=== PATIENT | male | born 1965 | race Caucasian/White ===

== ENCOUNTER 2018-05-30 22:56 | Emergency (ER) | payer SELFPAY ==
[~2018-05-30] VITALS: Ht 160 cm; Wt 104.0 kg
[2018-05-31] MEDS ORDERED: ONDANSETRON HCL 4MG/2ML INJ IV ONE (00:45)
[2018-05-31] MEDS ORDERED: MORPHINE SULFATE 4 MG/ML CPJ (NOT FOR IM USE) IV ONE (00:45)
[2018-05-31] MEDS ORDERED: SODIUM CHLORIDE 0.9% 1,000 ML IV ONE (00:45)
[2018-05-31 01:04] LABS: BASOPHILS % 0.8 % (0.0-2.0); EOSINOPHILS % 1.8 % (0.0-5.0); HEMATOCRIT. 47.8 % (42.0-52.0); HEMOGLOBIN. 15.9 g/dL (14.0-18.0); LYMPHOCYTES % 13.7 % (20.0-50.0); MEAN CORPUSCULAR HEMOGLOBIN 31.4 pg (28.0-32.0); MONOCYTES % 4.4 % (2.0-8.0); NEUTROPHILS % 79.3 % (40.0-76.0); PLATELET 263 x1000/uL (130-400); RED BLOOD CELL COUNT 5.08 mill/uL (4.7-6.1); RED CELL DISTRIBUTION WIDTH 13.4 % (11.6-14.6)
[2018-05-31 01:07] LABS: CHLORIDE 105 mEq/L (98-107)
[2018-05-31 01:15] LABS: CLARITY URINE CLEAR (CLEAR); COLOR URINE YELLOW (YELLOW); KETONES URINE NEGATIVE (NEGATIVE); LEUKOCYTE ESTERASE URINE NEGATIVE (NEGATIVE); NITRITE URINE NEGATIVE (NEGATIVE); OCCULT BLOOD URINE TRACE (NEGATIVE); PROTEIN URINE NEGATIVE (NEGATIVE); SPECIFIC GRAVITY URINE 1.006 (1.005-1.030); UROBILINOGEN URINE 0.2 E.U./dL (0.2-1.0)
[2018-05-31 01:54] LABS: PROTHROMBIN TIME 9.7 sec (9.1-11.1)
[2018-05-31] MEDS ORDERED: KETOROLAC 30MG/ML VIAL IV ONE (03:15)
[2018-05-31 05:30] VITALS: BP 126/74
== END 2018-05-31 05:40 | disposition home or self-care (01) ==
LOC: ER 22:56
DX: N20.1 Calculus of ureter (principal); R11.10 Vomiting, unspecified; I10 Essential (primary) hypertension; Z98.890 Other specified postprocedural states
CPT/HCPCS: 36415; 74176; 80053; 81003; 83690; 84484; 85025; 85610; 96374; 96375; 99284; J1885; J2270; J2405; J7030